=== PATIENT | male | born 1995 | race Caucasian/White ===

== ENCOUNTER 2020-08-03 21:23 | Emergency (ER) | payer MEDICAID, SELFPAY ==
[2020-08-03 21:23] VITALS: BP 149/97; PULSE 56; RESP 16; TEMP 36.9; O2SAT 98; BMI 25.7
--- NOTE | 2020-08-03 21:45 | CT_ITS ---
PROCEDURE: CT ABDOMEN PELVIS WO CON CLINICAL INDICATION: right flank pain COMPARISON: No exams were available for comparison TECHNIQUE: Axial images obtained with sagittal and coronal reformats. All CT scans at the facility use one or more dose reduction, viz: automated exposure control, ma/kV adjustment per patient size (including targeted exams where dose is matched to indication, i.e. head), or iterative reconstruction technique. FINDINGS: LOWER THORAX: No acute finding ABDOMEN & PELVIS: The liver, spleen, pancreas, and adrenal glands show no acute finding. There are punctate bilateral renal calculi measuring up to 3 mm. There is mild right hydronephrosis and hydroureter secondary to a 3 mm stone in the mid right ureter at the L4-5 level. There are few scattered small mesenteric lymph nodes. No evidence of appendicitis. No intestinal obstruction or free air. There is a mild amount of retained colonic feces in the rectosigmoid region.. No pelvic mass or abnormal fluid collection. No acute bony findings. IMPRESSION: 3 mm right mid ureteral stone with mild right hydronephrosis and proximal hydroureter with bilateral nephrolithiasis. Dictated by: Bossman Edmondson MD 08/04/2020 06:08 Bossman Edmondson MD in [place] 08/04/2020 06:08
--- NOTE | 2020-08-03 21:51 | PC.NURSE ---
pt to RAD
[2020-08-03 21:54] LABS: Basophils # 0.1 K/mm3 (0-0.2); Basophils % 0.7 % (0.1-2.0); Eosinophils # 0.3 K/mm3 (0.0-0.4); Eosinophils % 2.2 % (0.1-12.0); Hematocrit 45.9 % (42.0-52.0); Lymphocytes # 5.9 K/mm3 (0.7-4.5); Lymphocytes % 45.1 % (10-50); Mean Corpuscular HGB Conc 34.8 g/dL (31.8-35.4); Mean Corpuscular Hemoglobin 31.7 pg (27.0-31.2); Mean Corpuscular Volume 91.1 fl (80-94); Mean Platelet Volume 7.6 fl (7.4-10.4); Monocytes # 0.6 K/mm3 (0.1-1.0); Monocytes % 4.8 % (1.7-9.3); Neutrophils # 6.2 K/mm3 (1.8-7.8); Neutrophils % 47.2 % (37.0-80.0); Platelet Count 271 K/mm3 (142-424); Red Blood Count 5.04 M/mm3 (4.60-6.20); Red Cell Distribution Width 12.6 % (11.5-17.5); White Blood Count 13.2 K/mm3 (4.8-10.8)
[2020-08-03 21:55] LABS: Chloride 104 mmol/L (98-107); Potassium 3.7 mmoL/L (3.5-5.1); Sodium 139 mmol/L (136-145)
[2020-08-03 21:57] LABS: Alanine Aminotransferase 30 U/L (12-78); Amylase 67 U/L (30-110); Aspartate Amino Transferase 34 U/L (17-59); Blood Urea Nitrogen 9 mg/dl (9-20); Creatinine Clearance Estimated 175 mL/min (50-200); Estimated Glomerular Filt Rate 120 ml/min (>60); GFR (African American) 145 ML/MIN (>60)
[2020-08-03 21:58] LABS: Albumin Level 4.6 g/dl (3.5-5.0); Albumin/Globulin Ratio 1.6 (1.1-1.8); Alkaline Phosphatase 93 U/L (38-126); Anion Gap 11.7 mEq/L (5-15); Bilirubin,Total 0.5 mg/dl (0.2-1.3); Calcium 9.4 mg/dl (8.4-10.2); Carbon Dioxide 27 mmol/L (22.0-30.0); Globulin 2.9 g/dL (1.3-3.2); Glucose 114 mg/dl (74-100); Lipase 143 U/L (23-300); Total Protein,Serum 7.5 g/dl (6.3-8.2)
[2020-08-03 22:03] LABS: C-Reactive Protein 0.5 mg/L (0-4)
[2020-08-03 22:20] LABS: Microscopic, Urine URINE MICROSCOPIC (MICROSCOPIC)
[2020-08-03 22:21] LABS: Appearance,Urine CLEAR (Clear); Blood, Urine 3+ (Negative); Color,Urine YELLOW (Yellow); Glucose,Urine (UA) Negative (Negative); Ketones,Urine TRACE (Negative); Leukocyte Esterase,Urine Negative (Negative); Nitrate,Urine Negative (Negative); Protein,Urine 1+ (Negative)
[2020-08-03 22:31] VITALS: BP 137/92; PULSE 61; RESP 16; O2SAT 98
[2020-08-03 22:35] LABS: Erythrocyte Sedimentation Rate 14 mm/hr (0-15)
[2020-08-03 22:49] LABS: Bilirubin,Urine Negative (Negative)
[2020-08-03 22:55] LABS: Bacteria,Urine Trace /lpf; WBC,Urine Occasional #/hpf (0-3)
--- NOTE | 2020-08-03 23:09 | [facility].EDGENADL ---
ED Disposition Clinical Impression: Renal colic on right side Disposition: Home, Self-Care Condition on Discharge: Good Instructions: DI for Kidney Stones Additional Instructions: fluids and see pcp and urology for follow up - call dr herbert in am Prescriptions: Tamsulosin HCl [Flomax 0.4mg capsule] 0.4 mg PO HS #10 cap Prescription Printed Referrals: PCP,No [Primary Care Provider] - Jeevan Herbert MD [Staff Physician] - - Critical Care Critical Care Time: No Attestation: On 08/03/20, the high probability of a clinically significant, sudden or life threatening deterioration of the following system(s) required my full and direct attention, intervention and personal management. The time I documented below is in addition to time spent performing reported procedures but includes the following listed in this critical care notation. Medical Decision Making - Medical Records Medical records reviewed: Yes: I reviewed the patient's medical records. - Rui Inquiry Pt receiving controlled substance: No Vital Signs: 08/03/20 21:23 08/03/20 22:31 Temperature 98.5 F Temperature Source Oral Pulse Rate [Left Radial] 56 L 61 Respiratory Rate 16 16 Blood Pressure [Right Arm] 149/97 H 137/92 H Blood Pressure Mean [Right Arm] 114 107 Blood Pressure Source [Right Arm] Automatic Cuff Automatic Cuff Blood Pressure Position [Right Arm] Sitting Sitting 02 Sat by Pulse Oximetry 98 98 Oxygen Delivery Method Room Air Room Air - Lab Data Lab results reviewed: Yes: I reviewed the patient's lab results. Lab Results 08/03/20 20:15: Urine Color Yellow, Urine Appearance Clear, Urine pH 8.0, Ur Specific [place] 1.020, Urine Protein 1+, Urine Glucose (UA) Negative, Urine Ketones Trace, Urine Blood 3+, Urine Nitrate Negative, Urine Bilirubin Negative, Urine Urobilinogen 1.0, Ur Leukocyte Esterase Negative, Urine RBC 5-10, Urine WBC Occasional, Urine Bacteria Trace 08/03/20 21:50: WBC 13.2 H, RBC 5.04, Hgb 16.0, Hct 45.9, MCV 91.1, MCH 31.7 H, MCHC 34.8, RDW 12.6, Plt Count 271, MPV 7.6, Neut % (Auto) 47.2, Lymph % (Auto) 45.1, Gray % (Auto) 4.8, Eos % (Auto) 2.2, Baso % (Auto) 0.7, Neut # (Auto) 6.2, Lymph # (Auto) 5.9 H, Gray # (Auto) 0.6, Eos # (Auto) 0.3, Baso # (Auto) 0.1, ESR 14 08/03/20 21:50: Sodium 139, Potassium 3.7, Chloride 104, Carbon Dioxide 27, Anion Gap 11.7, BUN 9, Creatinine 0.80, Estimated Creat Clear 175, Estimated GFR 120, Est GFR ( Amer) 145, Glucose 114 H, Calcium 9.4, Total Bilirubin 0.5, AST 34, ALT 30, Alkaline Phosphatase 93, C-Reactive Protein 0.5, Total Protein 7.5, Albumin 4.6, Globulin 2.9, Albumin/Globulin Ratio 1.6, Amylase 67, Lipase 143 Result diagrams: 08/03/20 21:50 08/03/20 21:50 Orders (Tests/Meds): ED MEDICATIONS Generic Name Dose Route Start Last Admin Trade Name Freq PRN Reason Stop Dose Admin Sodium Chloride 1,000 mls @ 999 mls/hr 08/03/20 21:45 08/03/20 21:37 Sod Chlor 0.9% 1000ml Bag IV 08/03/20 22:45 999 mls/hr .Q1H1M NATHALIE Administration Sodium Chloride 1,000 mls @ 999 mls/hr 08/03/20 23:15 08/03/20 23:05 Sod Chlor 0.9% 1000ml Bag IV 08/04/20 00:15 999 mls/hr .Q1H1M NATHALIE Administration Discontinued Medications Generic Name Dose Route Start Last Admin Trade Name Freq PRN Reason Stop Dose Admin Ketorolac Tromethamine 30 mg 08/03/20 21:35 08/03/20 21:37 Ketorolac 30mg/Ml Vial IV 08/03/20 21:36 30 mg ONCE ONE Administration Ondansetron HCl 4 mg 08/03/20 21:35 08/03/20 21:37 Ondansetron 4mg/2ml Vial IV 08/03/20 21:36 4 mg ONCE ONE Administration Tamsulosin HCl 0.4 mg 08/03/20 23:04 08/03/20 23:06 Tamsulosin 0.4mg Capsule PO 08/03/20 23:05 0.4 mg ONCE ONE Administration ORDERS Category Date Time Status CT abdomen pelvis wo con Stat Cat Scan 08/03/20 21:45 Taken - CT Data CT Scan: Abdomen, Pelvis Time Received: 23:[address] Reviewed: Yes: I have viewed the radiologist's interpretation Preliminar
[2020-08-03 23:30] VITALS: BP 119/67; PULSE 71; RESP 16; O2SAT 97
[2020-08-03 23:54] VITALS: BP 120/68; PULSE 68; RESP 16; TEMP 36.7; O2SAT 98
== END 2020-08-03 23:58 | disposition home or self-care (01) ==
PROVIDERS: Emergency Provider Emergency Medicine
DX: N23 Unspecified renal colic (principal); F17.210 Nicotine dependence, cigarettes, uncomplicated; Z88.0 Allergy status to penicillin
CPT/HCPCS: 74176; 80053; 81001; 82150; 83690; 85025; 85651; 86140; 96365; 96366; 96375; 99283; J2405

== ENCOUNTER → 2020-08-12 14:21 | Outpatient (CLI) | payer MEDICAID, SELFPAY ==
--- NOTE | 2020-08-12 14:24 | XR_ITS ---
PROCEDURE: XR KUB CLINICAL INDICATION: ureteral stone COMPARISON: CT CT ABDOMEN PELVIS WO CON from 08/03/2020 FINDINGS: There are small calculi noted in the mid aspect of the left kidney and in the upper pole of the right kidney. No definite ureteral calculus. IMPRESSION: Bilateral nephrolithiasis Dictated by: Bossman Edmondson MD 08/12/2020 15:24 Bossman Edmondson MD in [place] 08/12/2020 15:24
== END ==
PROVIDERS: Visit Provider Urology
DX: N20.1 Calculus of ureter (principal)
CPT/HCPCS: 74018